=== PATIENT | female | born 1970 | race African-American/Black ===

== ENCOUNTER 2016-05-24 13:09 | Emergency (ER) | payer OTHER ==
[~2016-05-24] VITALS: Ht 165.1 cm; Wt 104.5 kg
[2016-05-24 13:13] VITALS: TEMP 98.1
[2016-05-24] MEDS ORDERED: ZYRTEC-D 5 MG-11 TER PO (13:16)
[2016-05-24 14:06] LABS: BASO # 0.1 (0.0-0.2); BASO % 0.7 % (0.0-2.0); EOS # 0.1 (0.0-0.7); EOS % 1.2 % (0-4.0); GRAN # 5.3 (1.4-6.5); GRAN % 53.9 % (42.2-75.2); HEMATOCRIT 43.9 % (37.0-47.0); HEMOGLOBIN 15.2 g/dl (12.5-16.0); LYMPH # 3.7 (1.2-3.4); LYMPH % 38.1 % (20.0-51.0); MEAN CELL VOLUME 92 fl (80.0-100.0); MEAN CORPUSCULAR HEMOGLOBIN 32 pg (27.0-31.0); MEAN CORPUSCULAR HGB CONC 35 g/dl (33.0-37.0); MEAN PLATELET VOLUME 9.6 fl (7.4-10.4); MONO # 0.6 (0.1-0.6); MONO % 5.9 % (1.7-9.3); PLATELET COUNT 270 K/mm3 (130-400); RED BLOOD COUNT 4.77 M/mm3 (4.10-5.30); REDCELL DISTRIBUTION WIDTH-CV 12.8 % (11.5-14.5); WHITE BLOOD COUNT 9.8 K/mm3 (4.8-10.8)
[2016-05-24 14:20] LABS: ALANINE AMINOTRANSFERASE 37 U/L (9-52); ALBUMIN 4.1 gm/dL (3.5-5.0); ALKALINE PHOSPHATASE 65 U/L (50-136); ANION GAP 12 mmol/L (7-16); BILIRUBIN,TOTAL 0.8 mg/dL (0.0-1.0); BLOOD UREA NITROGEN 9 mg/dL (7-17); C-REACTIVE PROTEIN 0.6 mg/dL (0.0-0.9); CALCIUM 10.1 mg/dL (8.4-10.2); CARBON DIOXIDE 21 mmol/L (22-30); CHLORIDE 107 mmol/L (98-107); CREATININE, serum 0.83 mg/dL (0.52-1.25); GLUCOSE 91 mg/dL (74-106); LIPASE 85 U/L (23-300); POTASSIUM 3.9 mmol/L (3.4-5.0); SODIUM 139 mmol/L (137-145); TOTAL PROTEIN 7.2 gm/dL (6.4-8.2)
[2016-05-24 14:30] LABS: TROPONIN-I < 0.012 ng/mL (0.000-0.034)
[2016-05-24 15:22] LABS: PH 6 (5-8); URINE APPEARANCE Clear; URINE BACTERIA Rare /hpf; URINE BILIRUBIN Negative (NEGATIVE); URINE BLOOD Negative (NEGATIVE); URINE COLOR Straw; URINE GLUCOSE Negative (NEGATIVE); URINE KETONE Negative (NEGATIVE); URINE RBC 0-2 /hpf; URINE UROBILINOGEN Negative (NEGATIVE); URINE WBC 0-2 /hpf
[2016-05-24] MEDS ORDERED: NORCO 325 MG-51 TAB PO (15:54)
[2016-05-24] MEDS ORDERED: PROTONIX 40MG T40 MG PO (15:54)
[2016-05-24] MEDS ORDERED: ZOFRAN 4MG T4 MG/TAB PO (15:54)
[2016-05-24 16:38] VITALS: BP 147/89; PULSE 80
== END 2016-05-24 16:38 | disposition home or self-care (01) ==
LOC: COL.ER 13:09
PROVIDERS: Emergency Medicine
DX: R10.13 Epigastric pain (principal)
CPT/HCPCS: J1170; J2405; J7030

== ENCOUNTER 2020-02-07 16:53 | Emergency (ER) | payer OTHER ==
[~2020-02-07] VITALS: Ht 165.1 cm; Wt 105.5 kg
[~2020-02-07 16:53] MED LIST: NORCO 325 MG-51 TAB PO; PROTONIX 40MG T40 MG PO; ZOFRAN 4MG T4 MG/TAB PO; ZYRTEC-D 5 MG-11 TER PO
[2020-02-07 17:28] VITALS: TEMP 98.8
[2020-02-07] MEDS ORDERED: NORCO 325 MG-51 TAB PO (19:46)
[2020-02-07 20:06] VITALS: BP 122/70; PULSE 92
[2020-02-07] MEDS ORDERED: FLEXERIL 1010 MG/TAB PO (20:16)
== END 2020-02-07 20:07 | disposition home or self-care (01) ==
LOC: COL.ER 16:53
DX: S20.211A Contusion of right front wall of thorax, initial encounter (principal); R40.2410 Glasgow coma scale score 13-15, unspecified time; V89.2XXA Person injured in unspecified motor-vehicle accident, traffic, initial encounter
CPT/HCPCS: J1885; J2360

== ENCOUNTER → 2020-07-01 | Outpatient (CLI) | payer OTHER ==
[~2020-07-01] VITALS: Ht 165.1 cm; Wt 111.5 kg
[~2020-07-01] MED LIST changes: +FLEXERIL 1010 MG/TAB PO; +PERCOCET 325 MG1 TA2 PO; +VALIUM 5MG T5 MG/TAB PO
[2020-07-01 13:16] VITALS: BP 145/90; PULSE 100
[2020-07-01 14:45] VITALS: BP 156/76; PULSE 92
--- NOTE | 2020-07-01 15:31 | NUR ---
PT WAS TAKEN TO POV AND HANDED OVER TO HER . NO QUESTIONS REGARDING DC INSTRUCTIONS. PT FEEING BETTER AT PRESENT.
== END ==
LOC: COL.RAD 12:50
DX: M48.02 Spinal stenosis, cervical region (principal)
CPT/HCPCS: J1100